=== PATIENT | male | born 1980 | race Caucasian/White ===

== ENCOUNTER → 2018-04-20 | Outpatient (CLI) | payer BC | LOC: COL.RAD 13:00 | DX: N99.113 Postprocedural anterior bulbous urethral stricture, male (principal); Z96.0 Presence of urogenital implants | CPT/HCPCS: Q9967 ==

== ENCOUNTER 2021-03-26 08:00 | Outpatient (RCR) | payer BC | END 2021-06-07 | disposition home or self-care (01) | LOC: WSPT | DX: M25.562 Pain in left knee (principal) ==

== ENCOUNTER → 2024-03-18 | Outpatient (CLI) | payer BC ==
[~2024-03-18] MED LIST: CLARITIN 1010 MG/TAB PO; MAGNESIUM ELEM300 MG PO; NORCO 325 MG-51 TAB PO; OMEGA-3 1000 MG1 CAP PO; ROXICODONE 55 MG/TAB PO; TYLENOL 500MG500 MG PO; VYVANSE40 MG PO; WELLBUTRIN XL150 MG PO; ZOFRAN 4MG T4 MG/TAB PO; ZYRTEC 10MG10 MG PO
== END ==
LOC: COL.CARD 10:29
DX: M47.27 Other spondylosis with radiculopathy, lumbosacral region (principal); M71.38 Other bursal cyst, other site